=== PATIENT | male | born 1960 | race Caucasian/White ===

== ENCOUNTER 2024-08-11 13:04 | Emergency (ER) | payer BC, SELFPAY ==
[2024-08-11 13:06] VITALS: BP 123/77
--- NOTE | 2024-08-11 15:05 | ED.GENMED ---
History of Present Illness
General
Chief Complaint: Skin Surface Trauma
Source: patient
Exam Limitations: none
Time Seen by Provider: 08/11/24 15:05
Nursing documentation reviewed up to this point in time: agreed with
History of Present Illness
History of Present Illness:
64 y/o male with pmh of diabetes, prostate cancer, osteoarthritis presents to the emergency department today with concerns of laceration to his head and hand. Patient reports that he was repairing the bottom of the shower door when suddenly, the
glass door broke and shards of glass fell onto patient. Patient states that his head and hand were cut. Contrary to the triage note, patient reports that the door did not fall onto him. He did not loose consciousness. He denies any neck pain. He
denies any numbness or tingling in his upper extremities. He denies any motor weakness.
Past History
Past History
ED Past Medical History: NIDDM and Other (Prostate cancer)
ED Past Surgical History: Urological
Social History
Tobacco: Non-smoker
Alcohol: None
Drug: None
Review of Systems
Review of Systems
All Other Systems: ROS reviewed and negative except as documented in HPI and ROS
Phy Exam
Physical Exam
Physical Exam:
General: Patient is well appearing and in no acute distress; non-toxic
Skin: 3 cm laceration noted to the left posterior hand
Head: 2 cm laceration noted to the posterior scalp
Eyes: Sclera non-icteric. EOMs intact.
Cardiac: Regular rate
Peripheral Vascular: Brisk capillary refill
Pulm: Normal respiratory effort
Musculoskeletal: Tenderness to palpation of the 3rd metacarpal. 5/5 strength in left upper extremity with full ROM.
Neuro: CN II-XII intact, no focal neurologic deficits. Sensation intact.
Psychiatric: Appropriate mood and affect.
Course
Orders/Labs/Results
Orders:
Orders
08/11/24 15:15
Tetanus/Diphth/Acelpertussis [Adacel] 0.5 ml IM .ONCE ONE
CR Hand - Left 2 Views Urgent
Comment:
Reason For Exam: first metacarpal pain
Vital Signs
Initial and Last Documented VS:
Initial Vital Signs
Temp Pulse Resp BP Pulse Ox
98.2 F 87 16 123/77 98
08/11/24 13:06 08/11/24 13:06 08/11/24 13:06 08/11/24 13:06 08/11/24 13:06
Last Documented Vital Signs
Temp Pulse Resp BP Pulse Ox
98.2 F 87 16 123/77 98
08/11/24 13:06 08/11/24 13:06 08/11/24 13:06 08/11/24 13:06 08/11/24 13:06
Procedures
Laceration Closure
Posterior Scalp:
Status of Wound: clean
Size of Wound in cm: 4
Description of Wound Edges: ragged
Preparation: cleaned with saline
Anesthesia: 1% Lidocaine with epi
Revision/Debridement: routine- no revision
Wound exploration: explored to base- no FB
Type of Closure: single layer closure
Skin Closure Material: skin jaron
Left Posterior Hand:
Status of Wound: clean
Size of Wound in cm: 2.5
Description of Wound Edges: ragged
Preparation: cleaned with saline
Anesthesia: 1% Lidocaine with epi
Revision/Debridement: minor revision
Wound exploration: explored to base- no FB
Type of Closure: single layer closure
Skin Closure Material: 4-0 nylon
Number of sutures: 5
MDM/Problems Addressed
Differential Diagnosis Includes:
see below
MDM/Problems Addressed:
NUMBER AND COMPLEXITY OF PROBLEMS ADDRESSED AT THE ENCOUNTER
� Chronic conditions affecting care: Hypertension, diabetes
� Acute Exacerbation and/or Progression of Chronic Illness: N/A
� Differential Diagnosis includes: Differentials include abrasion, laceration, neurovascular injury
AMOUNT AND/OR COMPLEXITY OF DATA TO BE REVIEWED AND ANALYZED
� I performed an independent evaluation of and my interpretation is:
X-rays: no foreign body noted on x-ray
Other:
� Review of other/old records: Hospital discharge summaries in [facility] to review
� Clinical information was obtained by an independent historian: present who also provided HPI
� Prescriptions/Medications Considered but not given: considered antibiotics however wound was thoroughly irrigated and there is no evidence of remaining foreign body
� Further testing considered but not performed: considered CT scan however patient did not have blunt head trauma
RISK OF COMPLICATIONS AND/OR MORBIDITY OR MORTALITY OF PATIENT MANAGEMENT
� Social determinants of health affecting care: none
� Discussion with other providers: ER attending
� Escalation of care including admission/observation vs risk of discharge considered:
64 y/o male with pmh of diabetes, prostate cancer, osteoarthritis presents to the emergency department today with concerns of laceration to his head and hand. Patient reports that he was repairing the bottom of the shower door when suddenly, the
glass door broke and shards of glass fell onto patient. His lacerations were repaired. No indication for CT imaging at this time. Patient stable for discharge.
*Pulse Oximetry
Patient hypoxic: no
*Critical Care Note
Total Time (30-74mins, 75-104mins- exclusive of procedures): Not Applicable
ED Attending Note
-
Portions of this chart may have been created with voice recognition software.� Occasional wrong word or��sound alike� substitutions may have occurred due to the inherent limitations of voice recognition software.
Discharge Plan
Departure
Patient Disposition: Home (Routine Discharge)
Date of Disposition: 08/11/24
Time of Disposition: 16:44
Patient with high blood pressure during this ER visit?: Yes
Condition: Good
Discharge Problem:
Hand laceration, Laceration of scalp
Instructions: Wound Care (DC), Laceration Repair With Slater (DC), Laceration Repair With Stitches (DC)
Prescriptions:
No Action
naproxen sodium [Aleve] 220 mg Capsule
440 mg PO PRN PRN (Reason: pain)
Referrals:
Rashi Kuhn MD [Family Provider] -
Activity Restrictions/Additional Instructions:
PLEASE RETURN EMERGENCY DEPARTMENT SHOULD YOU EXPERIENCE PURULENT DRAINAGE FROM THE WOUND, SURROUNDING REDNESS TO THE BRAIN, INCREASING PAIN, FEVERS OR CHILLS, OR ANY OTHER SIGNS OR SYMPTOMS CONCERNING TO YOU.
Please change dressing once daily. Please keep the wound dry for 24 hours. You can apply a nonadherent pad over the wound followed by a wrap. Please do not submerge the wound in water, you can let mild warm soapy water run over the wound.
Stitches can be removed moved in 10 to 12 days. Please report to her primary care provider, urgent care, or the emergency department to have the stitches removed. Slater were placed in your scalp. These can be removed in 7 days.
Interventions
Interventions:
*Risk Screen - Suicide Last Done: 08/11/24 13:06
*General Assessment Last Done: 08/11/24 13:06
*Neglect/Abuse Screening Last Done: 08/11/24 15:11
*ED COVID-19 Vaccine History Last Done: 08/11/24 13:06
*Nursing Disposition Last Done: 08/11/24 16:52
ED-Skin Assessment Last Done: 08/11/24 15:14
Discharge Date and Time
Discharge Date/Time: 08/11/24 16:53
Print Language: KITTITIAN
[2024-08-11] MEDS: ADACEL 0.5 ML IM (15:20)
== END 2024-08-11 16:53 | disposition home or self-care (01) ==
LOC: EMR 13:04
PROVIDERS: EMERGENCY PHYSICIAN Emergency Medicine; FAMILY PHYSICIAN Family Medicine
DX: S61.412A Laceration without foreign body of left hand, initial encounter (principal); S01.01XA Laceration without foreign body of scalp, initial encounter; W25.XXXA Contact with sharp glass, initial encounter; E11.9 Type 2 diabetes mellitus without complications; I10 Essential (primary) hypertension; Z85.46 Personal history of malignant neoplasm of prostate; Z23 Encounter for immunization
CPT/HCPCS: 12002; 90471; 99283; 73120; 90715

== ENCOUNTER 2024-10-19 06:18 | Day surgery (SDC) | payer BC, SELFPAY ==
[2024-10-19 07:53] LABS: Glucose - Point of Care 140 mg/dl (70-99)
== END 2024-10-19 08:58 | disposition home or self-care (01) ==
LOC: GI 06:18
PROVIDERS: ATTENDING PHYSICIAN Internal Medicine Gastroenterology
DX: Z12.11 Encounter for screening for malignant neoplasm of colon (principal); K64.8 Other hemorrhoids; K57.30 Diverticulosis of large intestine without perforation or abscess without bleeding; K63.5 Polyp of colon; Z86.0100 Personal history of colon polyps, unspecified
CPT/HCPCS: 45385; 88305; 82962